=== PATIENT | male | born 1990 | race Caucasian/White ===

== ENCOUNTER 2016-07-11 00:20 | Emergency (ER) | payer OTHER ==
--- NOTE | 2016-08-14 15:32 | ER ---
ADMIT: 07/11/2016 RM/LOC: ER [facility] MR#: [id number] [address] [id number] SYEDA COYNE [address] [place] [address] Emergency Room Report SEX: M AGE: 25 : 1990 DATE: 07/11/2016 A 25-year-old who was bit on the ring finger of the right hand by his own dog, trying to separate the dog fight. See T-sheet for remainder of history and physical. DIAGNOSIS: Dog bite. Given Augmentin in the emergency department, a prescription for Augmentin. Wound was cleaned and covered with a splint. Instructed to follow up as needed. Jonathon Mooney MD/ octaviano JOB #: [id number] CC: Ayan Butler MD, Attending Physician
== END 2016-07-11 01:40 | disposition home or self-care (01) ==
LOC: ER 00:20
PROC: 2W3JX1Z Immobilization of Right Finger using Splint (ICD-10-PCS; principal; 2016-07-11)
DX: S61.254A Open bite of right ring finger without damage to nail, initial encounter (principal); Z23 Encounter for immunization; W54.0XXA Bitten by dog, initial encounter; Y92.009 Unspecified place in unspecified non-institutional (private) residence as the place of occurrence of the external cause